=== PATIENT | female | born 1975 | race Caucasian/White ===

== ENCOUNTER → 2016-07-18 | Outpatient (CLI) | payer OTHER ==
[2016-07-18 10:48] LABS: HEMOGLOBIN 7.4 g/dL (12.0-16.0); MEAN CORPUSCULAR HEMOGLOBIN 17.9 PG (27-31); MEAN PLATELET VOLUME 9.8 FL (7.4-12.2)
[2016-07-18 10:53] LABS: HEMATOCRIT 28.1 % (37.0-47.0); MEAN CORPUSCULAR HGB CONC 26.3 g/dL (33-37); RDW COEFFICIENT OF VARIATION 19.1 % (11.5-14.5); RED BLOOD COUNT 4.14 10^6/uL (4.20-5.40); WHITE BLOOD COUNT 4.9 10^3/uL (4.8-10.8)
[2016-07-18 10:56] LABS: RETIC COUNT 0.0479 10(6)/uL (0.0380-0.1130); RETICULOCYTE PERCENT 1.16 % (0.77-2.36)
== END ==
LOC: MOB LAB 09:48
PROVIDERS: ATTEND Family Medicine
DX: M54.2 Cervicalgia (principal); M54.10 Radiculopathy, site unspecified; D50.0 Iron deficiency anemia secondary to blood loss (chronic)
CPT/HCPCS: 36415; 82607; 82728; 82746; 83540; 83550; 85027; 85045